=== PATIENT | female | born 1945 | race Two or more races ===

== ENCOUNTER 2018-04-16 20:27 | Emergency (ER) | payer OTHER, MEDICAID ==
[~2018-04-16] VITALS: Ht 152.4 cm; Wt 88.6 kg
[2018-04-16 21:13] LABS: GLUCOSE,POINT OF CARE 145 MG/DL (70-110)
[2018-04-16] MEDS ORDERED: ASPI-556 PO (21:18)
[2018-04-16] MEDS ORDERED: CETI-170 PO (21:18)
[2018-04-16] MEDS ORDERED: LOSA50TA64 PO (21:18)
[2018-04-16] MEDS ORDERED: DORZ10DR18 OD (21:18)
[2018-04-16] MEDS ORDERED: ALBU8HFA PO (21:18)
[2018-04-16] MEDS ORDERED: AMLO-512 PO (21:18)
[2018-04-16] MEDS ORDERED: TIMO5DRO35 OD (21:18)
[2018-04-16] MEDS ORDERED: ATOR20TA86 PO (21:18)
[2018-04-16] MEDS ORDERED: SITA100 PO (21:18)
[2018-04-16] MEDS ORDERED: TRAZ-220 PO (21:18)
[2018-04-16] MEDS ORDERED: CANA100T PO (21:18)
[2018-04-16] MEDS ORDERED: ACET250T27 PO (21:18)
[2018-04-16] MEDS: ACETAMINOPHEN 500 MG TABLET PO ONE (22:43)
[2018-04-16] MEDS: AmLODIPine BESYLATE 5 MG TABLET PO ONE (22:43)
[2018-04-16] MEDS: LOSARTAN POTASSIUM 50 MG TABLET PO ONE (22:44)
[2018-04-17] MEDS: SODIUM PHOS/SODIUM BIPHOS 133 ML ENEMA PR ONE (00:04)
[2018-04-17 00:42] VITALS: BP 163/73
== END 2018-04-17 01:00 | disposition home or self-care (01) ==
LOC: EMS 20:31
DX: K59.00 Constipation, unspecified (principal); I10 Essential (primary) hypertension; E11.9 Type 2 diabetes mellitus without complications; E78.00 Pure hypercholesterolemia, unspecified; J45.909 Unspecified asthma, uncomplicated; Z86.73 Personal history of transient ischemic attack (TIA), and cerebral infarction without residual deficits; Z79.82 Long term (current) use of aspirin; Z79.899 Other long term (current) drug therapy; Z79.84 Long term (current) use of oral hypoglycemic drugs
CPT/HCPCS: 74018

== ENCOUNTER 2018-04-22 15:28 | Emergency (ER) | payer OTHER, MEDICAID ==
[~2018-04-22] VITALS: Ht 152.4 cm; Wt 85.5 kg
[~2018-04-22 15:28] MED LIST: ACET250T27 PO; ALBU8HFA PO; AMLO-512 PO; ASPI-556 PO; ATOR20TA86 PO; CANA100T PO; CETI-170 PO; DORZ10DR18 OD; LOSA50TA64 PO; SITA100 PO; TIMO5DRO35 OD; TRAZ-220 PO
[2018-04-22 16:49] LABS: GLUCOSE,POINT OF CARE 140 MG/DL (70-110)
[2018-04-22] MEDS ORDERED: SODIUM PHOS/SODIUM BIPHOS 133 ML ENEMA PR ONE (19:00)
[2018-04-22] MEDS ORDERED: MINERAL OIL 133 ML ENEMA PR ONE (20:30)
[2018-04-22 21:40] VITALS: BP 148/80
== END 2018-04-22 21:56 | disposition home or self-care (01) ==
LOC: EMS 15:30
DX: K59.00 Constipation, unspecified (principal); J45.909 Unspecified asthma, uncomplicated; E11.9 Type 2 diabetes mellitus without complications; E78.00 Pure hypercholesterolemia, unspecified; I10 Essential (primary) hypertension; Z86.73 Personal history of transient ischemic attack (TIA), and cerebral infarction without residual deficits; Z79.82 Long term (current) use of aspirin